=== PATIENT | male | born 1965 | race Caucasian/White ===

== ENCOUNTER 2017-09-15 07:56 | Day surgery (SDC) | payer OTHER ==
[2017-09-15] MEDS ORDERED: FENTAnyl 50 MCG/ML VIAL (10:44)
[2017-09-15] MEDS ORDERED: MIDAZOLAM 1 MG/ML 2 ML INJ ×2 (10:45)
== END 2017-09-15 13:45 | disposition home or self-care (01) ==
LOC: GIL 07:56
DX: Z12.11 Encounter for screening for malignant neoplasm of colon (principal); K62.1 Rectal polyp; K64.8 Other hemorrhoids; I10 Essential (primary) hypertension; E11.9 Type 2 diabetes mellitus without complications
CPT/HCPCS: 45380; 82962; 88305